=== PATIENT | female | born 1975 | race Hispanic/Latino ===

== ENCOUNTER 2017-11-04 13:07 | Emergency (ER) | payer BC, SELFPAY ==
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
[2017-11-04 14:59] VITALS: BP 115/70; TEMP 97.6; O2SAT 99
[2017-11-04 15:10] LABS: Urine Blood NEGATIVE (NEG); Urine Glucose NEGATIVE (NEG); Urine Protein NEGATIVE (NEG)
== END 2017-11-04 14:52 | disposition home or self-care (01) ==
LOC: ER 13:07
DX: M79.1 Myalgia (principal); M54.6 Pain in thoracic spine; V49.49XA Driver injured in collision with other motor vehicles in traffic accident, initial encounter; Z88.0 Allergy status to penicillin
CPT/HCPCS: 70450; 72125; 72128; 81003; 81025; 99283

== ENCOUNTER 2020-02-23 06:36 | Day surgery (SDC) | payer OTHER ==
[2020-02-22 16:30] LABS: Specific Gravity >= 1.030 (1.005-1.030)
--- OUTSIDE RECORDS SUMMARY | 2020-02-23 06:39 | XMS REPORT | Continuity of Care Document ---
:1975 Author Organization [facility] t Address [address] [place] [address] Care Team Providers Name Role Phone Doctor Unassigned, Name Attending Clinician Unavailable Lab, Fam Pob I Attending Clinician Unavailable Kin MORAN, Kristen Attending Clinician Pob, Lab Main Attending Clinician Unavailable Problems This patient has no known problems. Allergies, Adverse Reactions, Alerts This patient has no known allergies or adverse reactions. Medications This patient has no known medications. Procedures This patient has no known procedures. Encounters Start End Encounter Admission Attending Care Care Encounter Source Date/Time Date/Time Type Type Clinicians Facility Department ID 2019-09-06 2019-09-06 Patient Doctor TAMY [id number] 00:00:00 00:00:00 Secure Msg UnassignedANA [id number] [facility] [id number] 2019-09-05 2019-09-05 Laboratory Lab, [facility] [id number] 14:42:37 15:02:37 Only Fam Pob I Health [id number] [place] [id number] Aubrey [phone] nal [address] 2019-09-05 2019-09-05 Letter Doctor TAMY 1.2.840.114 [id number] 00:00:00 00:00:00 (Out) UnassignedANA [id number] [facility] [id number] 2019-08-08 2019-08-08 Orders Doctor TAMY [id number] 00:00:00 00:00:00 Only UnassignedANA [id number] [facility] [id number] 2019-08-04 2019-08-04 Telephone Kin [facility] 1.2.840.114 [id number] 00:00:00 00:00:00 Elsie VERDUZCO [id number] CARE [id number] CENTER AT [phone] [address]EL[address] [place] [address] 2019-07-20 2019-07-20 Youth Corrections Officer Wander Izaguirre [facility] 1.2.840.114 [id number] 07:55:20 08:10:20 Visit Lab Main [place] [id number] [place] [id number] Professio [phone] [facility] [address] Building Results This patient has no known results.
[2020-02-23] MEDS ORDERED: Ringers Lactate 1,000 ML IV ONE (07:04)
[2020-02-23] MEDS ORDERED: FENTANYL CITR 100 MCG/2 ML ONE (07:30)
[2020-02-23] MEDS ORDERED: propofoL 200 MG/20 ML VIAL IV ONE (07:30)
[2020-02-23] MEDS ORDERED: KETOROLAC 30 MG/ML INJ ONE (07:30)
[2020-02-23] MEDS ORDERED: MIDAZOLAM HCL 2 MG/2 ML INJ ONE (07:30)
[2020-02-23] MEDS ORDERED: ONDANSETRON 4 MG/2 ML VIAL ONE (07:31)
[2020-02-23] MEDS ORDERED: LIDOCAINE 1% MPF 30 ML VIAL ONE (07:31)
[2020-02-23] MEDS ORDERED: LIDOCAINE 1% W/EPI 1:100,000 MDV 50 ML VIAL ONE (07:37)
[2020-02-23 09:09] VITALS: BP 123/64; TEMP 99.3; O2SAT 94
[2020-02-23] MEDS ORDERED: ACETAMINOPHEN 500 MG TAB ONE (09:10)
--- NOTE | 2020-02-24 01:22 | OP ---
Date of Procedure: 02/23/2020 Surgeon: Franchesca Yepez MD Preoperative Diagnoses: Menorrhagia and iron deficiency anemia from chronic blood loss. Postoperative Diagnoses: Menorrhagia and iron deficiency anemia from chronic blood loss. Procedures Performed: Diagnostic hysteroscopy and dilation and curettage. Anesthesia: MAC plus paracervical block. Specimens: Endometrial curettings. Complications: No complications. Drains: No drains. Condition: Stable. Indications: The patient is a 44-year-old female, who presented to the office for some vaginitis and discharge and found to have iron deficiency anemia and iron infusions were given to this patient. S he has seen Dr. Ndiaye and then was referred over to Dr. Clemens and she was treated appropriately. T he impression in the office was that she had an extremely low hemoglobin somewhere less than 6 and th at she was given iron infusions. No history of any transfusion. However, no records available from either physician's office, but she seemed to have ongoing very heavy bleeding as well as dysmenorrhea , so there was a high concern for her low level of anemia and ongoing bleeding. She needed endometri al sampling and this was scheduled for the patient. She was consented and brought to the operating r oom. Description Of Procedure: She was a difficult IV stick. Once this was done, the IV was put in and d id find contemplated giving her a transfusion if the hemoglobin was still low, however, on talking to Dr. Clemens after her most recent hemoglobin was known to be 13 g, then there was no reason for any con cern to transfuse this patient. So, she was taken back to the operating room, placed in a supine fas hion on the operating table. MAC was given and she was placed in the dorsal lithotomy position. Pel david exam was performed. Uterus was found to be anteflexed and slightly enlarged. Prep x3 with Betad ine was done. Anterior lip was injected with 1% lidocaine mixed with 1:100,000 epinephrine 8 cc. Th en, at 4 and 8 o'clock cervicovaginal junction were injected with 5 cc each. Speculum placed to retr act posteriorly. Anterior lip grasped with 2 Allis clamps and diagnostic hysteroscopy was performed with a 30 degree lens normal saline. The cervical canal was traversed under direct visualization int o the uterine cavity. Cavity was opened. Unremarkable thick endometrium without any masses. Both t ubal ostia were well visualized. The scope was then removed and endometrial curettings were performe d. There was excellent sampling. Sample was handed off for permanent pathology. Instruments were r emoved. Instrument, needle, and sponge counts were correct at the end of the case. Toradol 30 mg wa s given to the patient and she was recovered from anesthesia and taken to [facility] in a stab le condition. She has a 1 week followup appointment with me and I can then send a report of her path to Dr. Ndiaye as well as Dr. Clemens. Estimated blood loss was minimal. Instrument, needle, and spo nge counts were correct. COLEMAN/RAYMOND Voice ID: [id number] Report ID: [id number]
== END 2020-02-23 09:19 | disposition home health service (06) ==
LOC: OR 06:36
PROVIDERS: ATTEND Obstetrics & Gynecology
PROC: 0UDB8ZX Extraction of Endometrium, Via Natural or Artificial Opening Endoscopic, Diagnostic (ICD-10-PCS; principal; 2020-02-23 07:30)
DX: N92.0 Excessive and frequent menstruation with regular cycle (principal); R10.31 Right lower quadrant pain; D50.9 Iron deficiency anemia, unspecified; R51.9 Headache, unspecified; N76.6 Ulceration of vulva; I10 Essential (primary) hypertension; Z20.822 Contact with and (suspected) exposure to COVID-19
CPT/HCPCS: 81025; 88305; 83001; 58555; U0002; J2704; J2250; J3010; J7120; J2405

== ENCOUNTER 2020-05-25 13:01 | Emergency (ER) | payer OTHER ==
--- OUTSIDE RECORDS SUMMARY | 2020-05-25 13:04 | XMS REPORT | Continuity of Care Document ---
:1975 Author Organization [facility] t Address [address] [place] [address] Care Team Providers Name Role Phone Unknown Attending Clinician Unavailable Lab, Fam Pob I Attending Clinician Unavailable Rosemarie MEDRANO Attending Clinician Kemar Figueroa DO Attending Clinician Doctor Unassigned, Name Attending Clinician Unavailable Kristen Sanderson MD Attending Clinician Pob, Lab Main Attending Clinician Unavailable Problems This patient has no known problems. Allergies, Adverse Reactions, Alerts This patient has no known allergies or adverse reactions. Medications This patient has no known medications. Procedures This patient has no known procedures. Encounters Start End Encounter Admission Attending Care Care Encounter Source Date/Time Date/Time Type Type Clinicians Facility Department ID 2020-05-25 2020-05-25 Telephone Unknown, [facility] 1.2.840.114 [id number] 00:00:00 00:00:00 Attending Health [id number] Surgical [id number] Specialti [phone] [address] [place] 2020-04-30 2020-04-30 Laboratory Lab, [facility] 1.2.840.114 [id number] 13:56:37 14:16:37 Only Fam Pob I Health [id number] [place] [id number] Professio [phone] nal [address] 2020-04-30 2020-04-30 Letter Rosemarie [facility] 1.2.840.114 [id number] 00:00:00 00:00:00 (Out) [facility] [id number] [place] [id number] Professio [phone] nal [address] 2020-04-25 2020-04-25 Patient Henry [facility] 1.2.840.114 [id number] 00:00:00 00:00:00 Outreach Dez PRIMARY [id number] [place] CARE [id number] PAVILLION [id number] [id number] 2019-09-06 2019-09-06 Patient Doctor TAMY 1.2.840.114 [id number] 00:00:00 00:00:00 Secure Msg Unassigned, ANA [id number] [facility] [id number] 2019-09-05 2019-09-05 Laboratory Lab, [facility] 1.2.840.114 [id number] 14:42:37 15:02:37 Only Fam Pob I Health [id number] [place] [id number] Professio [phone] nal [facility] Office Building One 2019-09-05 2019-09-05 Letter Doctor TAMY 1.2.840.114 [id number] 00:00:00 00:00:00 (Out) Unassigned, ANA [id number] [facility] [id number] 2019-08-08 2019-08-08 Orders Doctor TAMY 1.2.840.114 [id number] 00:00:00 00:00:00 Only Unassigned, ANA [id number] [facility] [id number] 2019-08-04 2019-08-04 [facility] 1.2.840.114 [id number] 00:00:00 00:00:00 Elsie Peterson SPECIALTY [id number] CARE [id number] CENTER AT [phone] FELIPE [facility] 2019-07-20 2019-07-20 [place] Hydraulic Press Operator Wander Izaguirre [facility] 1.2.840.114 [id number] 07:55:20 08:10:20 Visit Lab Main [place] [id number] [place] [id number] Aubrey [phone] [facility] [address] Building Results This patient has no known results.
--- NOTE | 2020-05-25 13:59 | RAD REPORT ---
EXAM DESCRIPTION: RAD - Chest Single View - 05/25/2020 1:53 pm CLINICAL HISTORY: weakness, shortness of breath COMPARISON: None TECHNIQUE: AP portable chest image was obtained 05/25/2020 1:53 pm . FINDINGS: Lung volumes are low. Trace amount of stranding is present in the left base probably atele ctasis rather than infiltrate. No dense consolidation. No failure or volume overload findings. Heart and vasculature are normal. No measurable pleural effus ion and no pneumothorax. Breast implants are in place increasing density over the lower lung garcia. No acute bony abnormality seen. No acute aortic findings suspected. IMPRESSION: No acute cardiopulmonary finding confirmed. Trace amount of stranding in the left lung base is favored to be atelectasis rather infiltrate. Corre lation can be made with physical exam findings.
--- NOTE | 2020-05-25 14:00 | RAD REPORT ---
EXAM DESCRIPTION: CT - Head Brain Wo Cont - 05/25/2020 1:46 pm CLINICAL HISTORY: WEAKNESS COMPARISON: No comparisons TECHNIQUE: Axial 5 mm thick images of the head were obtained without IV contrast. All CT scans are performed using dose optimization technique as appropriate and may include automated exposure control or mA/KV adjustment according to patient size. FINDINGS: No intracranial hemorrhage, mass, edema or shift of mid-line structures. No acute infarcti on changes seen. No abnormal extra-axial fluid collections. Ventricles are normal. Mastoid air cells and visualized portions of the paranasal sinuses are clear. No acute bony findings. IMPRESSION: Negative non-contrast CT head examination.
[2020-05-25 16:59] LABS: Protime INR 1.15
[2020-05-25 17:00] LABS: Absolute Lymphocytes (CBC) 3.2 K/uL (0.7-4.9); Basophils % 1.3 % (0-1.3); Hematocrit 40.4 % (36.0-45.0); Lymphocytes % 28.2 % (15.3-44.8); MPV 8.7 fL (7.6-11.3); RBC Red Blood Cell Count 4.85 M/uL (3.86-4.86)
[2020-05-25 17:01] LABS: ALT/SGPT 14 U/L (12-78); AST/SGOT 9 U/L (15-37); Albumin 3.2 g/dL (3.4-5.0); Alkaline Phosphatase 77 U/L (45-117); BUN Blood Urea Nitrogen 11 mg/dL (7-18); Bicarbonate 26 mmol/L (21-32); Bilirubin Direct 0.2 mg/dL (0-0.2); Glucose Level 73 mg/dL (74-106); Magnesium 2.3 mg/dL (1.8-2.4); NT PRO-BNP 107 pg/mL (<125); Potassium 3.8 mmol/L (3.5-5.1); Protein, Total 7.3 g/dL (6.4-8.2); Sodium Level 140 mmol/L (136-145); Troponin (Emerg Dept Use Only) < 0.02 ng/mL (0.0-0.045)
[2020-05-25 17:20] LABS: Barbiturates NEGATIVE (NEGATIVE); Benzodiazepines POSITIVE (NEGATIVE); Cocaine NEGATIVE (NEGATIVE); METHAMPHETAM NEGATIVE (NEGATIVE); Methadone NEGATIVE (NEGATIVE); Opiates NEGATIVE (NEGATIVE); Phencyclidine NEGATIVE (NEGATIVE); THC Cannibis NEGATIVE (NEGATIVE)
--- NOTE | 2020-05-25 17:38 | EDPHYS ---
Physician Documentation [facility] Name: Meggan Mesa Age: 44 yrs Sex: Female : 1975 Arrival Date: 05/25/2020 Time: 13:05 Bed 20 Private MD: Aubrie Ndiaye K ED Physician Vinicio Moser HPI: 05/25 13:29 This 44 yrs old Female presents to ER via Ambulatory with complaints of pm1 General Weakness, Syncope. 13:29 The patient's problem is reported as weakness, that is generalized. Onset: The pm1 symptoms/episode began/occurred today. Duration: This was a single incident. Context: Possible contributing factors include: Family and medical stressors. The symptoms are alleviated by nothing. The symptoms are aggravated by nothing. Associated signs and symptoms: Pertinent positives: Light vaginal bleeding since Wednesday. Poor PO intake due to anxiety and depression. Severity of symptoms: in the emergency department the symptoms have improved. Patient's baseline: Neuro: alert and fully oriented, Motor: no deficits, Ambulation: walks without assistance, Speech: normal. Iron transfusion with DR. Clemens after hemoglobin was 8.0. Patient was cooking lunch for her grandson and then she felt weak and sick. She went to lay down in bed to rest and the her reports that it was difficult to wake her up. Patient has been feeling stressed recently due to family and medical stressors. She is worried about the vaginal bleeding, anemia, and iron transfusions. 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 - Social history:: Smoking status: Patient denies any tobacco usage or history of. ROS: 13:29 Eyes: Negative for injury, pain, redness, and discharge, ENT: Negative for injury, pm1 pain, and discharge, Cardiovascular: Negative for chest pain, palpitations, and edema, Respiratory: Negative for shortness of breath, cough, wheezing, and pleuritic chest pain, Abdomen/GI: Negative for abdominal pain, nausea, vomiting, diarrhea, and constipation, Back: Negative for injury and pain, : Negative for injury, bleeding, discharge, and swelling, MS/Extremity: Negative for injury and deformity, Skin: Negative for injury, rash, and discoloration, Neuro: Negative for headache, weakness, numbness, tingling, and seizure. 13:29 Constitutional: Positive for poor PO intake, Negative for body aches, chills, fever. 13:29 Psych: Positive for anxiety, depression, Negative for homicidal ideation, suicide gesture, suicidal ideation. Exam: 13:29 Constitutional: This is a well developed, well nourished patient who is awake, alert, pm1 and in no acute distress. Head/Face: Normocephalic, atraumatic. 13:29 Back: No spinal tenderness. No costovertebral tenderness. Full range of motion. Skin: Warm, dry with normal turgor. Normal color with no rashes, no lesions, and no evidence of cellulitis. MS/ Extremity: Pulses equal, no cyanosis. Neurovascular intact. Full, normal range of motion. 13:29 Cardiovascular: Exam negative for acute changes, Rate: bradycardic, actual rate is 56 bpm, Rhythm: regular, Pulses: no pulse deficits are appreciated, Heart sounds: normal, normal S1and S2, Edema: is not appreciated. 13:29 Respiratory: Exam negative for acute changes, respiratory distress, shortness of breath, Breath sounds: are clear throughout. 13:29 Abdomen/GI: Exam negative for acute changes, Inspection: abdomen appears normal, Palpation: abdomen is soft and non-tender, in all quadrants, mass, is not appreciated. 13:29 Neuro: Exam negative for acute changes, Orientation: is normal, Mentation: is normal, Motor: is normal, moves all fours, Sensation: is normal, no obvious gross deficits. 15:06 Radiologist reports: CT head: No acute findings pm1 Vital Signs: 13:10 BP 142 / 84; Pulse 61; Resp 16 S; Temp 97.7(TE); Pulse Ox 97% on R/A; Weight 95.71 kg ca1 (R); Height 5 ft. 2 in. (157.48 cm) (R); Pain 0/10; 14:29 BP 142 / 99; Pulse 93; Resp 23; Pulse Ox 97% ; rb3 15:37 BP 104 / 79; Pulse 85; Resp 19; Pulse Ox 96% ; rb3 16:40 BP 129 / 75; Pulse 53; Resp 17; Pulse Ox 100% ; rb3 17:40 BP 128 / 78; Pulse 67; Resp 17; Pulse Ox 99% ; rb3 13:10 Body Mass Index 38.59 (95.71 kg, 157.48 cm) ca1 MDM: 13:21 Patient medically screened. pm1 17:32 ED course: positive UDS for benzodiazepines. Patient takes Xanax for her anxiety. pm1 Patient is experiencing lots of stressors at the moment. Her son of cancer 8 years ago and her vaginal bleeding has returned. It was recently treated with an ablation but the bleeding returned on Wednesday. She is fearful that the vaginal bleeding might be cancer related. Has been following up with Dr. Clemens and her next plan would possibly be a hysterectomy. 17:37 Data reviewed: vital signs. Data interpreted: Pulse oximetry: on room air is 100 %. pm1 Interpretation: normal. 17:37 Counseling: I had a detailed discussion with the patient and/or guardian regarding: the pm1 historical points, exam findings, and any diagnostic results supporting the discharge/admit diagnosis, lab results, radiology results, the need for outpatient follow up, to return to the emergency department if symptoms worsen or persist or if there are any questions or concerns that arise at home. 17:41 ED course: Patient would like the D50W. Told the patient that her sugar was just below pm1 normal and that I would like her to eat after she gets the D50W. Patient does not want the IV fluids. She would like to go home now because she feels better. 05/25 13:27 Order name: Glucose, Ancillary Testing; Complete Time: 13:30 EDMS 05/25 13:28 Order name: Basic Metabolic Panel; Complete Time: 17:14 pm1 05/25 13:28 Order name: CBC with Diff; Complete Time: 17:37 pm1 05/25 13:28 Order name: LFT's; Complete Time: 17:14 pm1 05/25 13:28 Order name: Magnesium; Complete Time: 17:14 pm1 05/25 13:28 Order name: NT PRO-BNP; Complete Time: 17:14 pm1 05/25 13:28 Order name: PT-INR; Complete Time: 17:37 pm1 05/25 13:28 Order name: Troponin (emerg Dept Use Only); Complete Time: 17:14 pm1 05/25 13:28 Order name: XRAY Chest (1 view); Complete Time: 14:09 pm1 05/25 13:28 Order name: UDS; Complete Time: 17:21 pm1 05/25 13:28 Order name: CT Head Brain wo Cont; Complete Time: 14:09 pm1 05/25 16:27 Order name: Urine --Ancillary (enter results); Complete Time: 13:21 eb 05/25 18:46 Order name: Glucose, Ancillary Testing; Complete Time: 18:48 EDMS 05/25 13:15 Order name: EKG; Complete Time: 13:16 ca1 05/25 13:15 Order name: EKG - Nurse/Tech; Complete Time: 13:23 ca1 05/25 13:28 Order name: Cardiac monitoring; Complete Time: 16:53 pm1 05/25 13:28 Order name: IV Saline Lock; Complete Time: 16:30 pm1 05/25 13:28 Order name: Labs collected and sent; Complete Time: 16:30 pm1 05/25 13:28 Order name: O2 Per Protocol; Complete Time: 16:30 pm1 05/25 13:28 Order name: O2 Sat Monitoring; Complete Time: 16:30 pm1 05/25 13:28 Order name: Urine Dipstick-Ancillary (obtain specimen); Complete Time: 16:29 pm1 05/25 13:28 Order name: Urine Test (obtain specimen); Complete Time: 16:29 pm1 Administered Medications: 18:01 Drug: D50W 25 ml Route: IVP; Site: left jugular; rb3 18:45 Follow up: Response: No adverse reaction rb3 Disposition: 05/26 08:32 Co-signature as Attending Physician, Vinicio Moser MD I agree with the assessment and diana plan of care. Disposition: 05/25/20 17:38 Discharged to Home. Impression: Acute stress reaction, Weakness. - Condition is Stable. - Discharge Instructions: Weakness, Stress and Stress Management. - Medication Reconciliation Form, Thank You Letter, Antibiotic Education, Prescription Opioid Use form. - Follow up: Emergency Department; When: As needed; Reason: Worsening of condition. Follow up: Private Physician; When: 2 - 3 days; Reason: Recheck today's complaints, Continuance of care, Re-evaluation by your physician. - Problem is new. - Symptoms have improved. Signatures: Dispatcher [employer] EDMS Vinicio Moser MD MD cha Marinas, Patrick, BANANA LOADER BANANA LOADER pm1 Brunilda Pimentel RN RN ca1 Missy Roman, RN RN rb3 Corrections: (The following items were deleted from the chart) 05/25 18:57 17:38 05/25/2020 17:38 Discharged to Home. Impression: Acute stress reaction; Weakness. rb3 Condition is Stable. Forms are Medication Reconciliation Form, Thank You Letter, Antibiotic Education, Prescription Opioid Use. Follow up: Emergency Department; When: As needed; Reason: Worsening of condition. Follow up: Private Physician; When: 2 - 3 days; Reason: Recheck today's complaints, Continuance of care, Re-evaluation by your physician. Problem is new. Symptoms have improved. pm1 18:59 17:32 ED course: positive UDS for benzodiazepines. Patient takes Xanax for her anxiety. pm1 Patient is experiencing lots of stressors at the moment. Her son of cancer 8 years ago and her vagina bleeding has returned. It was recently treated with an ablation but the bleeding returned on Wednesday. She is fearful that the vaginal bleeding might be cancer related. Has been following up with Dr. Clemens and her next plan would possibly be a hysterectomy. pm1
--- NOTE | 2020-05-25 17:38 | ER ---
Nurse's Notes [facility] Name: Meggan Mesa Age: 44 yrs Sex: Female : 1975 Arrival Date: 05/25/2020 Time: 13:05 Bed 20 Private MD: Aubrie Ndiaye K Diagnosis: Acute stress reaction;Weakness Presentation: 05/25 13:10 Chief complaint: Patient states: My found me unresponsive on the bed. I was ca1 cooking for lunch, then I feel sick so I went and lay down. I haven't been really eating and drinking much since Wednesday because of problems. EMS came in but I didn't want to come with them. Coronavirus screen: Client denies travel out of the [place] in the last 14 days. At this time, the client does not indicate any symptoms associated with coronavirus-19. Ebola Screen: Patient negative for fever greater than or equal to 101.5 degrees Fahrenheit, and additional compatible Ebola Virus Disease symptoms Patient denies exposure to infectious person. Patient denies travel to an Ebola-affected area in the 21 days before illness onset. No symptoms or risks identified at this time. Initial Sepsis Screen: Does the patient meet any 2 criteria? No. Patient's initial sepsis screen is negative. Does the patient have a suspected source of infection? No. Patient's initial sepsis screen is negative. Risk Assessment: Do you want to hurt yourself or someone else? Patient reports no desire to harm self or others. Onset of symptoms was May 25, 2020. 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 - Social history:: Smoking status: Patient denies any tobacco usage or history of. Screenin:20 Abuse screen: Denies threats or abuse. Nutritional screening: No deficits noted. rb3 Tuberculosis screening: No symptoms or risk factors identified. Fall Risk None identified. Assessment: 13:20 General: Appears in no apparent distress. comfortable, Behavior is calm, cooperative. rb3 Neuro: Level of Consciousness is awake, alert, obeys commands, Oriented to person, place, time, situation. Cardiovascular: Patient's skin is warm and dry. Respiratory: Airway is patent Respiratory effort is even, unlabored, Respiratory pattern is regular, symmetrical. GI: No signs and/or symptoms were reported involving the gastrointestinal system. : No signs and/or symptoms were reported regarding the genitourinary system. 13:20 Neuro: Reports Feeling sick and went to lay down and her reports that she was rb3 unresponsive.. 14:29 Reassessment: Patient appears in no apparent distress at this time. No changes from rb3 previously documented assessment. 14:30 Reassessment: Unable to access a line to draw labs. Asked DAWIT Brown to attempt an rb3 IV. 15:00 Reassessment: Lab has been contacted to come and draw labs. rb3 15:22 Reassessment: Patient appears in no apparent distress at this time. Patient and/or rb3 family updated on plan of care and expected duration. Pain level reassessed. Patient is alert, oriented x 3, equal unlabored respirations, skin warm/dry/pink. 15:27 Reassessment: Patient appears in no apparent distress at this time. Patient and/or rb3 family updated on plan of care and expected duration. Pain level reassessed. Patient is alert, oriented x 3, equal unlabored respirations, skin warm/dry/pink. 15:30 Reassessment: No labs have been drawn, KAREEM Stovall notified. She will have them paged rb3 again. 16:07 Reassessment: Asked RONNIE Damon if he could start a line and draw labs. rb3 16:30 Reassessment: Patient appears in no apparent distress at this time. Patient and/or rb3 family updated on plan of care and expected duration. Pain level reassessed. Patient is alert, oriented x 3, equal unlabored respirations, skin warm/dry/pink. 17:30 Reassessment: Patient appears in no apparent distress at this time. Patient and/or rb3 family updated on plan of care and expected duration. Pain level reassessed. 18:30 Reassessment: Patient appears in no apparent distress at this time. Patient denies pain rb3 at this time. Patient states feeling better. 18:45 Reassessment: Blood sugar is 93. rb3 Vital Signs: 13:10 BP 142 / 84; Pulse 61; Resp 16 S; Temp 97.7(TE); Pulse Ox 97% on R/A; Weight 95.71 kg ca1 (R); Height 5 ft. 2 in. (157.48 cm) (R); Pain 0/10; 14:29 BP 142 / 99; Pulse 93; Resp 23; Pulse Ox 97% ; rb3 15:37 BP 104 / 79; Pulse 85; Resp 19; Pulse Ox 96% ; rb3 16:40 BP 129 / 75; Pulse 53; Resp 17; Pulse Ox 100% ; rb3 17:40 BP 128 / 78; Pulse 67; Resp 17; Pulse Ox 99% ; rb3 13:10 Body Mass Index 38.59 (95.71 kg, 157.48 cm) ca1 ED Course: 13:05 Patient arrived in ED. am2 13:05 Aubrie Ndiaye MD is Private Physician. am2 13:12 Triage completed. ca1 13:12 Arm band placed on right wrist. ca1 13:20 [facility]. pm1 13:20 Vinicio Moser MD is Attending Physician. pm1 13:23 Patient has correct armband on for positive identification. Placed in gown. Bed in low ca1 position. Call light in reach. Side rails up X2. planning assistant on. Pulse ox on. NIBP on. Warm blanket given. 13:32 Missy Roman, RONNIE is Primary Nurse. rb3 13:46 CT Head Brain wo Cont In Process Unspecified. EDMS 13:50 X-ray completed. Patient tolerated procedure well. mh1 13:51 XRAY Chest (1 view) In Process Unspecified. EDMS 14:09 Missed attempt(s): 22 gauge in left antecubital area. Bleeding controlled, band aid rb3 applied, catheter tip intact. 18:45 No provider procedures requiring assistance completed. rb3 18:45 IV discontinued, intact, bleeding controlled, No redness/swelling at site. Pressure rb3 dressing applied. Administered Medications: 18:01 Drug: D50W 25 ml Route: IVP; Site: left jugular; rb3 18:45 Follow up: Response: No adverse reaction rb3 Outcome: 17:38 Discharge ordered by . pm1 18:45 Discharged to home ambulatory. rb3 18:45 Condition: good 18:45 Discharge instructions given to patient, Instructed on discharge instructions, follow up and referral plans. Demonstrated understanding of instructions, follow-up care, Prescriptions given X none 18:57 Patient left the ED. rb3 Signatures: Dispatcher [employer] EDMS Ronda Turner 1 Fernando Manjarrez, OPERATIONS SUPPORT PROFESSIONALS OPERATIONS SUPPORT PROFESSIONALS pm1 Tita Brooks am2 Brunilda Pimentel, RN RN ca1 Missy Roman RN RN rb3
[2020-05-25] MEDS ORDERED: D50W 25 GM/50 ML SYRINGE IV ONE (18:14)
[2020-05-25 19:11] VITALS: TEMP 97.7
[2020-05-25 19:17] VITALS: BP 128/78; O2SAT 99
[2020-05-25 20:31] LABS: Urine Specific Gravity/Preg 1.025 (1.005-1.030)
[2020-05-29 17:01] LABS: Urine Blood 1+ (Negative); Urine Glucose NEGATIVE (Negative); Urine Protein NEGATIVE (Negative); Urine Specific Gravity 1.025 (1.005-1.030); Urine pH 5.5 (5.0-7.0)
== END 2020-05-25 18:57 | disposition home or self-care (01) ==
LOC: ER 13:01
DX: R53.1 Weakness (principal); F43.9 Reaction to severe stress, unspecified; Z98.84 Bariatric surgery status; D64.9 Anemia, unspecified
CPT/HCPCS: 36415; 70450; 71045; 80048; 80076; 80307; 81003; 81025; 82947; 83735; 83880; 84484; 85025; 85610; 93005; 96374; 99284

== ENCOUNTER 2021-08-29 11:34 | Emergency (ER) | payer BC, OTHER ==
--- OUTSIDE RECORDS SUMMARY | 2021-08-29 11:39 | XMS REPORT | Continuity of Care Document ---
:1975 Author Organization [facility] t Address [address] [place] [address] Care Team Providers Name Role Phone Becki LOPEZ Primary Care Physician Sylvie Tse Attending Clinician Unavailable PREEVAN Attending Clinician Unavailable RADIOLOGY Attending Clinician Unavailable Becki LOPEZ Attending Clinician MENG Attending Clinician Unavailable Meng MORAN Attending Clinician LAB90 Attending Clinician Unavailable APOORVA HENDRIX Attending Clinician Unavailable JESUS Attending Clinician Unavailable Sharmin IAVN Attending Clinician Jesus MORAN Attending Clinician Gogo RN, T Attending Clinician Unavailable KAUSHIK Attending Clinician Unavailable Only, Db Test Attending Clinician Unavailable Kaushik MEDRANO Attending Clinician Simba IVAN Attending Clinician SIMBA Attending Clinician Unavailable Doctor Unassigned, Name Attending Clinician Unavailable Unknown Attending Clinician Unavailable Lab, Fam Pob I Attending Clinician Unavailable ANENE Attending Clinician Unavailable Rosemarie MEDRANO Attending Clinician Kemar Figueroa DO Attending Clinician Kristen Tomas MD Attending Clinician Pob, Lab Main Attending Clinician Unavailable Kristen TOMAS Attending Clinician Unavailable Payers Payer Name Policy Type Policy Number Effective Date Expiration Date S alicia MCCARTY [employer] 9 [id number] 2021 [employer]IMARY 00:00:00 BLUE E[employer]ENTIALS HMO [id number] 2021 00:00:00 CIGNA 2 [id number] 2020 00:00:00 [employer] SAVERS [id number] 2021 00:00:00 CIGNA II [id number] 2019 00:00:00 Problems Condition Condition Condition Status Onset Resolution Last Treating Co mments Source Name Details Category Date Date Treatment Clinician Date Morbid Morbid Disease Active Aline obesity obesity 5-20 Seybold with BMI with BMI 00:00: of of 00 40.0-44.9, 40.0-44.9, adult adult Attention Attention Disease Active Juve sey deficit deficit 4-28 Seybold hyperactiv hyperactiv 00:00: ity ity 00 disorder disorder (ADHD), (ADHD), predominan predominan tly tly inattentiv inattentiv e type e type Dry eyes Dry eyes Disease Active Kelse y 4-28 Seybold 00:00: 00 Iron (Fe) Iron (Fe) Disease Active Juve sey deficiency deficiency 4-15 Se ybold anemia anemia 00:00: 00 History of History of Disease Active Overview : Aline menorrhagi menorrhagi 4-15 Formattin Seybold a a 00:00: g of this 00 note might be different from the original. 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 old stress stress 00:00: disorder disorder 00 No known No known Disease Unive rs active active ity of problems problems [facility] Allergies, Adverse Reactions, Alerts Allergy Allergy Status Severity Reaction(s) Onset Inactive Treating Comm ents Source Name Type Date Date Clinician Penicill Drug Active Hives 2019-0 Univers ins Intolera 6-09 ity of nce 00:00: [place] 00 Medical [place] Penicill Drug Active Hives 2020-0 Univers ins Intolera 6-09 ity of nce 00:00: [place] 00 Medical [place] PENICILL Drug Active Hives 2020-0 Univers INS Class 6-09 ity of 00:00: [place] [facility] Penicill Drug Active Rash 2019-0 Aline ins Intolera 6-09 Seybold nce 00:00: 00 NO KNOWN Drug Active Univers ALLERGIE Class ity of S [facility] Social History Social Habit Start Date Stop Date Quantity Comments Source History SDOH Aline Martell ld Alcohol Std Drinks History SDOH Aline treviño Alcohol Binge History SDOH Aline treviño Alcohol Frequency Exposure to 2021-08-17 2021-08-27 Not sure [facility]-CoV-2 00:00:00 19:47:00 [facility] (event) [place] Alcohol intake 2021-06-27 2021-06-27 Aline riggins 00:00:00 00:00:00 Alcohol Comment 2021-05-23 2021-05-23 rarely Aline sampson 00:00:00 00:00:00 Education 2021-05-23 2021-05-23 16 Aline Garcia 00:00:00 00:00:00 Tobacco use and 2021-05-23 2021-05-23 Smokeless tobacco Ke juan j Garcia exposure 00:00:00 00:00:00 non-user Sex [birth year] At [birth year] Aline sampson 00:00:00 00:00:00 Smoking Status Start Date Stop Date Source Never smoked tobacco Aline Lemons old Medications Ordered Filled Start Stop Current Ordering Indication Dosage Frequency Signature Comments Components Source Medication Medication Date Date Medication? Clinician (SIG) Name Name ketorolac 2021- No 30mg 30 mg, Unive rs (TORADOL) 08-28 Slow IV ity of injection 02:15: 02:00 Push, [place] 30 mg 00 :00 ONCE, 1 Medical dose, On Branch 08/27/21 at 2115, JHOANA iopamidol 2021- No [id number] 55mL 55 mL, U nivers (ISOVUE 08-28 Intravenou ity o f 370-500 mL) 01:47: 01:47 s, ONCE, 1 [place] injection 00 :00 dose, On Medica l 55 mL Wed Branch 08/27/21 at 2100, Routine ondansetron Yes [id number] 4mg Take 1 Univers 4 mg 7-20 tablet by ity of disintegrat 00:00: mouth [place] ing tablet 00 every 4 Medica l (four) Branch hours as needed for Nausea and Vomiting (N/V). HYDROcodone 2021- Yes [id number] 1{tbl} Take 1 U nivers -acetaminop 08-27- tablet by it y of emilio (NORCO) 00:00: 04:59 [place] 7.5-325 mg 00 :00 every 8 Medica l per tablet (eight) Branch hours as needed for Pain for up to 7 days. Indication s: acute pain Semaglutide Yes [id number] .5mg Inject 0.5 Aline -Weight 5-20 mg into Seybold Management 00:00: the skin 0.5 00 once a MG/0.5ML week subcutaneou s Solution Auto-inject or Escitalopra Yes [id number] TAKE 1 Aline m Oxalate 5-09 TABLET BY Seannetteo ld 10 MG oral 00:00: MOUTH Tablet 00 EVERY DAY TRIMETHOPRI 2021-2021- No 1{tbl} Take 1 K elsey M-SULFAMETH 5-01 05-20 tablet by Se [employer] OXAZOLE 00:00: 00:00 mouth 800-160 MG 00 :00 every 12 oral Tablet hours FOR 7 DAYS Amphetamine 2021- Yes [id number] 10mg Take 1 Aline -Dextroamph 4-28 05-29 tablet (10 S eybold etamine 00:00: 04:59 mg total) (ADDERALL, 00 :00 by mouth 10MG,) 10 daily MG oral Tablet Amphetamine 2021- No [id number] 10mg Take 1 Aline -Dextroamph 4-28 05-20 tablet (10 S eybold etamine 00:00: 00:00 mg total) (ADDERALL, 00 :00 by mouth 10MG,) 10 daily MG oral Tablet Cyanocobala Yes [id number] 1000ug Take 1 Aline min 4-18 tablet Seybold (Vitamin 00:00: (1,000 mcg B-12) 1000 00 total) by MCG oral mouth Tablet daily Cyanocobala Yes [id number] 1000ug Take 1 Aline min 4-18 tablet Seybold (Vitamin 00:00: (1,000 mcg B-12) 1000 00 total) by MCG oral mouth Tablet daily Escitalopra Yes [id number] 10mg Take 1 Aline m Oxalate 4-15 tablet (10 Seyb old 10 MG oral 00:00: mg total) Tablet 00 by mouth daily Escitalopra Yes [id number] 10mg Take 1 Aline m Oxalate 4-15 tablet (10 Seyb old 10 MG oral 00:00: mg total) Tablet 00 by mouth daily cetirizine Yes [id number] 10mg Take 1 Univers 10 mg 9-10 tablet by ity of tablet 00:00: mouth [place] 00 daily. Medical Branch benzonatate Yes [id number] 200mg Take 1 Univers 200 mg 9-10 capsule by ity of capsule 00:00: mouth 3 [place] 00 (three) Medical times Branch daily as needed for Cough. ciprofloxac Yes [id number] 4[drp] Place 4 Univers in-dexameth 9-10 Drops in ity of asone 00:00: left ear 2 [place] 0.3-0.1 % 00 (two) Medical otic drops times Branch daily. fluticasone Yes [id number] 2{spray Use 2 Univers propionate 9-10 } Sprays in ity of 50 00:00: each [place] mcg/actuati 00 nostril Medic al on nasal daily. Branch spray cetirizine 0 Yes [id number] 10mg Take 1 Univers 10 mg 9-10 tablet by ity of tablet 00:00: mouth [place] 00 daily. Medical Branch benzonatate 0 Yes [id number] 200mg Take 1 Univers 200 mg 9-10 capsule by ity of capsule 00:00: mouth 3 [place] 00 (three) Medical times Branch daily as needed for Cough. ciprofloxac 0 Yes [id number] 4[drp] Place 4 Univers in-dexameth 9-10 Drops in ity of asone 00:00: left ear 2 [place] 0.3-0.1 % 00 (two) Medical otic drops times Branch daily. fluticasone 0 Yes [id number] 2{spray Use 2 Univers propionate 9-10 } Sprays in ity of 50 00:00: each [place] mcg/actuati 00 nostril Medic al on nasal daily. Branch spray cetirizine 0 Yes [id number] 10mg Take 1 Univers 10 mg 9-10 tablet by ity of tablet 00:00: mouth [place] 00 daily. Medical Branch benzonatate 0 Yes [id number] 200mg Take 1 Univers 200 mg 9-10 capsule by ity of capsule 00:00: mouth 3 [place] 00 (three) Medical times Branch daily as needed for Cough. ciprofloxac 0 Yes [id number] 4[drp] Place 4 Univers in-dexameth 9-10 Drops in ity of asone 00:00: left ear 2 [place] 0.3-0.1 % 00 (two) Medical otic drops times Branch daily. fluticasone 2020-0 Yes [id number] 2{spray Use 2 Univers propionate 9-10 } Sprays in ity of 50 00:00: each [place] mcg/actuati 00 nostril Medic al on nasal daily. Branch spray cetirizine 2020-0 Yes [id number] 10mg Take 1 Univers 10 mg 9-10 tablet by ity of tablet 00:00: mouth [place] 00 daily. Medical Branch benzonatate 2020-0 Yes [id number] 200mg Take 1 Univers 200 mg 9-10 capsule by ity of capsule 00:00: mouth 3 00 (three) Medical times Branch daily as needed for Cough. ciprofloxac 0 Yes [id number] 4[drp] Place 4 Univers in-dexameth 9-10 Drops in ity of asone 00:00: left ear 2 [place] 0.3-0.1 % 00 (two) Medical otic drops times Branch daily. fluticasone 2020-0 Yes [id number] 2{spray Use 2 Univers propionate 9-10 } Sprays in ity of 50 00:00: each [place] mcg/actuati 00 nostril Medic al on nasal daily. Branch spray cetirizine 2020-0 Yes [id number] 10mg Take 1 Univers 10 mg 9-10 tablet by ity of tablet 00:00: mouth [place] 00 daily. Medical Branch benzonatate 0 Yes [id number] 200mg Take 1 Univers 200 mg 9-10 capsule by ity of capsule 00:00: mouth 3 00 (three) Medical times Branch daily as needed for Cough. ciprofloxac 0 Yes [id number] 4[drp] Place 4 Univers in-dexameth 9-10 Drops in ity of asone 00:00: left ear 2 [place] 0.3-0.1 % 00 (two) Medical otic drops times Branch daily. fluticasone 2020-0 Yes [id number] 2{spray Use 2 Univers propionate 9-10 } Sprays in ity of 50 00:00: each [place] mcg/actuati 00 nostril Medic al on nasal daily. Branch spray cetirizine 2020-0 Yes [id number] 10mg Take 1 Univers 10 mg 9-10 tablet by ity of tablet 00:00: mouth [place] 00 daily. Medical Branch benzonatate 2020-0 Yes [id number] 200mg Take 1 Univers 200 mg 9-10 capsule by ity of capsule 00:00: mouth 3 [place] 00 (three) Medical times Branch daily as needed for Cough. ciprofloxac 2020-0 Yes [id number] 4[drp] Place 4 Univers in-dexameth 9-10 Drops in ity of asone 00:00: left ear 2 [place] 0.3-0.1 % 00 (two) Medical otic drops times Branch daily. fluticasone Yes [id number] 2{spray Use 2 Univers propionate 9-10 } Sprays in ity of 50 00:00: each [place] mcg/actuati 00 nostril Medic al on nasal daily. Branch spray cetirizine 0 Yes [id number] 10mg Take 1 Univers 10 mg 9-10 tablet by ity of tablet 00:00: mouth [place] 00 daily. Medical Branch benzonatate 0 Yes [id number] 200mg Take 1 Univers 200 mg 9-10 capsule by ity of capsule 00:00: mouth 3 (three) Medical times Branch daily as needed for Cough. ciprofloxac Yes [id number] 4[drp] Place 4 Univers in-dexameth 9-10 Drops in ity of asone 00:00: left ear 2 [place] 0.3-0.1 % 00 (two) Medical otic drops times Branch daily. fluticasone Yes [id number] 2{spray Use 2 Univers propionate 9-10 } Sprays in ity of 50 00:00: each [place] mcg/actuati 00 nostril Medic al on nasal daily. Branch spray cetirizine 0 Yes [id number] 10mg Take 1 Univers 10 mg 9-10 tablet by ity of tablet 00:00: mouth [place] 00 daily. Medical Branch benzonatate 0 Yes [id number] 200mg Take 1 Univers 200 mg 9-10 capsule by ity of capsule 00:00: mouth 3 (three) Medical times Branch daily as needed for Cough. ciprofloxac 0 Yes [id number] 4[drp] Place 4 Univers in-dexameth 9-10 Drops in ity of asone 00:00: left ear 2 [place] 0.3-0.1 % 00 (two) Medical otic drops times Branch daily. fluticasone 0 Yes [id number] 2{spray Use 2 Univers propionate 9-10 } Sprays in ity of 50 00:00: each [place] mcg/actuati 00 nostril Medic al on nasal daily. Branch spray cetirizine 0 Yes [id number] 10mg Take 1 Univers 10 mg 9-10 tablet by ity of tablet 00:00: mouth [place] 00 daily. Medical Branch benzonatate 2020-0 Yes [id number] 200mg Take 1 Univers 200 mg 9-10 capsule by ity of capsule 00:00: mouth 3 [place] 00 (three) Medical times Branch daily as needed for Cough. ciprofloxac 2020-0 Yes [id number] 4[drp] Place 4 Univers in-dexameth 9-10 Drops in ity of asone 00:00: left ear 2 [place] 0.3-0.1 % 00 (two) Medical otic drops times Branch daily. fluticasone 2020-0 Yes [id number] 2{spray Use 2 Univers propionate 9-10 } Sprays in ity of 50 00:00: each [place] mcg/actuati 00 nostril Medic al on nasal daily. Branch spray benzonatate Yes TAKE 1 Univ ers 200 mg 9-07 CAPSULE BY ity of capsule 00:00: MOUTH 3 [place] 00 TIMES A Medical DAY Branch NEEDED FOR COUGH benzonatate 0 Yes TAKE 1 Univ ers 200 mg 9-07 CAPSULE BY ity of capsule 00:00: MOUTH 3 [place] 00 TIMES A Medical DAY Branch NEEDED FOR COUGH benzonatate 0 Yes TAKE 1 Univ ers 200 mg 9-07 CAPSULE BY ity of capsule 00:00: MOUTH 3 [place] 00 TIMES A Medical DAY Branch NEEDED FOR COUGH benzonatate 2020-0 Yes TAKE 1 Univ ers 200 mg 9-07 CAPSULE BY ity of capsule 00:00: MOUTH 3 [place] 00 TIMES A Medical DAY Branch NEEDED FOR COUGH benzonatate 2020-0 Yes TAKE 1 Univ ers 200 mg 9-07 CAPSULE BY ity of capsule 00:00: MOUTH 3 [place] 00 TIMES A Medical DAY Branch NEEDED FOR COUGH benzonatate 2020-0 Yes TAKE 1 Univ ers 200 mg 9-07 CAPSULE BY ity of capsule 00:00: MOUTH 3 [place] 00 TIMES A Medical DAY Branch NEEDED FOR COUGH benzonatate 2020-0 Yes TAKE 1 Univ ers 200 mg 9-07 CAPSULE BY ity of capsule 00:00: MOUTH 3 [place] 00 TIMES A Medical DAY Branch NEEDED FOR COUGH benzonatate 2020-0 Yes TAKE 1 Univ ers 200 mg 9-07 CAPSULE BY ity of capsule 00:00: MOUTH 3 [place] 00 TIMES A Medical DAY Branch NEEDED FOR COUGH benzonatate Yes TAKE 1 Univ ers 200 mg 907 CAPSULE BY ity of capsule 00:00: MOUTH 3 [place] 00 TIMES A Medical DAY Branch NEEDED FOR COUGH losartan Yes Take by Unive rs potassium 2-06 mouth. ity of (LOSARTAN 17:45: [place] ORAL) 11 Medical Branch losartan Yes Take by Unive rs potassium 2-06 mouth. ity of (LOSARTAN 17:45: [place] ORAL) 11 Medical Branch losartan Yes Take by Unive rs potassium 2-06 mouth. ity of (LOSARTAN 17:45: [place] ORAL) 11 Medical Branch losartan Yes Take by Unive rs potassium 2-06 mouth. ity of (LOSARTAN 17:45: [place] ORAL) 11 Medical Branch losartan Yes Take by Unive rs potassium 2-06 mouth. ity of (LOSARTAN 11:45: [place] ORAL) 11 Medical Branch losartan Yes Take by Unive rs potassium 2-06 mouth. ity of (LOSARTAN 11:45: [place] ORAL) 11 Medical Branch losartan Yes Take by Unive rs potassium 2-06 mouth. ity of (LOSARTAN 11:45: [place] ORAL) 11 Medical Branch losartan Yes Take by Unive rs potassium 2-06 mouth. ity of (LOSARTAN 11:45: [place] ORAL) 11 Medical Branch losartan Yes Take by Unive rs potassium 2-06 mouth. ity of (LOSARTAN 11:45: [place] ORAL) 11 Medical Branch losartan Yes Take by Unive rs potassium 2-06 mouth. ity of (LOSARTAN 11:45: [place] ORAL) 11 Medical Branch losartan Yes Take by Unive rs potassium 2-06 mouth. ity of (LOSARTAN 11:45: [place] ORAL) 11 Medical Branch losartan Yes Take by Unive rs potassium 2-06 mouth. ity of (LOSARTAN 11:45: [place] ORAL) 11 Medical Branch Immunizations Ordered Immunization Filled Immunization Date Status Commen ts Source Name Name Influenza Virus 2021-01-22 Completed Aline sampson Vaccine, No Preserv, 00:00:00 age 6 months and up Influenza Virus 2021-01-22 Completed Aline sampson Vaccine, No Preserv, 00:00:00 age 6 months and up Influenza Virus 2021-01-22 Completed Aline sampson Vaccine, No Preserv, 00:00:00 age 6 months and up Vital Signs Vital Name Observation Time Observation Value Comments Source Systolic blood 2021-08-28 03:00:00 131 mm[Hg] Univer sity of pressure [facility] Diastolic blood 2021-08-28 03:00:00 83 mm[Hg] Unive rsity [facility] Heart rate 2021-08-28 03:00:00 63 /min [facility] Respiratory rate 2021-08-28 03:00:00 18 /min [facility] Oxygen saturation in 2021-08-28 03:00:00 97 /min [facility] blood by [facility] Pulse oximetry Branch Body temperature 2021-08-28 00:47:00 36.94 [place] [facility] Body weight 2021-08-28 00:47:00 103.42 kg [facility] BMI 2021-08-28 00:47:00 40.39 kg/m2 [facility] Systolic blood 2021-06-27 21:15:00 119 mm[Hg] Aline Seybold pressure Diastolic blood 2021-06-27 21:15:00 74 mm[Hg] Kelse y Seybold pressure Heart rate 2021-06-27 21:15:00 66 /min Aline S emilybold Body temperature 2021-06-27 21:15:00 36.67 [place] Kisha ey Seybold Respiratory rate 2021-06-27 21:15:00 14 /min Kisha ey [place] Body height 2021-06-27 21:15:00 160 cm Aline S emilybold Body weight 2021-06-27 21:15:00 103.602 kg Aline S emilybold BMI 2021-06-27 21:15:00 40.46 kg/m2 Aline S eybold Systolic blood 2021-06-05 21:14:00 118 mm[Hg] Aline Seybold pressure Diastolic blood 2021-06-05 21:14:00 72 mm[Hg] Kelse y Seybold pressure Heart rate 2021-06-05 21:14:00 73 /min Aline S eybold Body temperature 2021-06-05 21:14:00 36.28 [place] Kisha ey Seybold Respiratory rate 2021-06-05 21:14:00 16 /min Kisha ey Seybold Body height 2021-06-05 21:14:00 160 cm Aline S eybold Body weight 2021-06-05 21:14:00 102.513 kg Aline S eybold BMI 2021-06-05 21:14:00 40.03 kg/m2 Aline S eybold Heart rate 2021-05-23 13:23:00 75 /min Aline S eybold Body temperature 2021-05-23 13:23:00 36.28 [place] Kisha ey Seybold Respiratory rate 2021-05-23 13:23:00 15 /min Kisha ey Seybold Body height 2021-05-23 13:23:00 160 cm Aline S eybold Body weight 2021-05-23 13:23:00 101.606 kg Aline S eybold BMI 2021-05-23 13:23:00 39.68 kg/m2 Aline S eybold Oxygen saturation in 2021-05-23 13:23:00 99 /min Aline Seybold Arterial blood by Pulse oximetry Systolic blood 2021-05-23 13:23:00 122 mm[Hg] Aline Seybold pressure Diastolic blood 2021-05-23 13:23:00 86 mm[Hg] Kelse y Seybold pressure Heart rate 2021-05-23 13:23:00 75 /min Aline S eybold Body temperature 2021-05-23 13:23:00 36.28 [place] Kisha ey Seybold Respiratory rate 2021-05-23 13:23:00 15 /min Kisha ey Seybold Body height 2021-05-23 13:23:00 160 cm Aline S eybold Body weight 2021-05-23 13:23:00 101.606 kg Aline S eybold BMI 2021-05-23 13:23:00 39.68 kg/m2 Aline S eybold Oxygen saturation in 2021-05-23 13:23:00 99 /min Aline Seybold Arterial blood by Pulse oximetry Systolic blood 2021-05-23 13:23:00 122 mm[Hg] Aline Garcia pressure Diastolic blood 2021-05-23 13:23:00 86 mm[Hg] Tracy Garcia pressure Systolic blood 2021-02-10 16:34:00 111 mm[Hg] Univer sity of pressure [place] [facility] Diastolic blood 2021-02-10 16:34:00 74 mm[Hg] Unive rsity of pressure [place] [facility] Heart rate 2021-02-10 16:34:00 55 /min [facility] [place] [facility] Body temperature 2021-02-10 16:34:00 36.17 [place] Univ ersity of [place] [facility] Respiratory rate 2021-02-10 16:34:00 18 /min Univ ersity of [place] [facility] Body height 2021-02-10 16:34:00 160 cm [facility] [place] [facility] Body weight 2021-02-10 16:34:00 100.018 kg [facility] [place] [facility] BMI 2021-02-10 16:34:00 39.06 kg/m2 Universi ty of [place] [facility] Oxygen saturation in 2021-02-10 16:34:00 97 /min University of Arterial blood by [facility] Pulse oximetry Branch Systolic blood 2021-01-31 00:57:00 137 mm[Hg] Univer sity of pressure [place] [facility] Diastolic blood 2021-01-31 00:57:00 86 mm[Hg] Unive rsity of pressure [place] [facility] Heart rate 2021-01-31 00:57:00 72 /min [facility] [place] [facility] Body height 2021-01-31 00:57:00 160 cm [facility] [place] [facility] Body weight 2021-01-31 00:57:00 101.606 kg Universi ty of [place] [facility] BMI 2021-01-31 00:57:00 39.68 kg/m2 [facility] [place] [facility] Oxygen saturation in 2021-01-31 00:57:00 97 /min University of Arterial blood by [facility] frank Pulse oximetry Branch Systolic blood 2020-10-18 22:07:00 119 mm[Hg] Univer sity of pressure [place] [facility] Diastolic blood 2020-10-18 22:07:00 73 mm[Hg] Unive rsity of pressure [place] [facility] Heart rate 2020-10-18 22:07:00 66 /min [facility] Body temperature 2020-10-18 22:07:00 36.67 [place] [facility] Respiratory rate 2020-10-18 22:07:00 15 /min [facility] Body height 2020-10-18 22:07:00 157.5 cm [facility] Body weight 2020-10-18 22:07:00 101.152 kg [facility] BMI 2020-10-18 22:07:00 40.79 kg/m2 [facility] Oxygen saturation in 2020-10-18 22:07:00 99 /min [facility] blood by [facility] Pulse oximetry Branch Procedures Procedure Date / Time Performing Clinician Source Performed POCT TEST 2021-08-28 02:54:00 Erickson Fan [facility] CT LUMBAR SPINE WO 2021-08-28 01:56:12 Erickson Fan [facility] CONTRAST [facility] CT ABDOMEN PELVIS W 2021-08-28 01:55:17 Erickson Fan [facility] CONTRAST [facility] COMP. METABOLIC PANEL 2021-08-28 01:34:00 Erickson Fan [facility] ([id number]) [facility] CBC WITH DIFF 2021-08-28 01:34:00 Erickson Fan Timbo o [facility] PROTHROMBIN TIME / INR 2021-08-28 01:34:00 Erickson Fan [facility] ACTIVATED PARTIAL 2021-08-28 01:34:[address] [facility] THRMPLAS RYLAN [facility] URINALYSIS 2021-08-28 01:34:00 Erickson Fan Timbo o [facility] URINALYSIS 2021-08-28 00:53:00 Meng Erickson [facility] NOTICE OF PRIVACY 2021-08-28 00:39:26 Doctor Unassigned, No [facility] PRACTICES [facility] CONSENT/REFUSAL FOR 2021-08-28 00:38:59 [facility] Medical [place] ASSIGNMENT OF BENEFITS 2020-10-18 20:42:40 Doctor Unassigned, No [facility] Encounters Start End Encounter Admission Attending Care Care Encounter Source Date/Time Date/Time Type Type Clinicians Facility Department ID 2021-08-26 Outpatient Annel Tse [facility] [id number] 2 Common 15:33:00 [id number] [facility] 2021-03-05 Outpatient Annel Tse [facility] [id number] 2 Common 13:12:21 [id number] [facility] 2021-03-05 Outpatient TseAnnel strong [facility] [id number] 2 Common 12:15:17 [id number] [facility] 2021-03-05 Outpatient Annel Tse [facility] [id number] 2 Common 12:14:12 [id number] [facility] 2021-11-21 2021-11-21 Outpatient ALINE CONNELL [id number] Aline 16:15:00 16:15:00 AURELIO savage 2021-09-26 2021-09-26 Outpatient ALINE CONNELL [id number] Aline 16:15:00 16:15:00 AURELIO savage 2021-09-04 2021-09-04 Outpatient R RADIOLOGY [facility] [id number] Univers 00:00:00 00:00:00 [id number] [facility] 2021-08-29 2021-08-29 Outpatient ALINE CONNELL [id number] Aline 00:00:00 00:00:00 AURELIO savage 2021-08-28 2021-08-28 Office Bam Connell [id number] Aline 11:15:00 11:30:00 Visit Aurelio Vogel [id number] Se sampson [id number] 2021-08-27 2021-08-27 Emergency X MENG [facility] ERT [id number] Univers 19:53:00 22:06:00 ERICKSON [facility] 2021-08-27 2021-08-27 [facility] [facility] 1.2.319.092 [id number] Univers 19:53:00 22:06:00 [facility] 350.1.13.10 i ty [facility] 4.2.7.2.686 [facility] [id number] [facility] [address] 2021-08-27 2021-08-27 Outpatient PREZAALINE Rangel [id number] [place] 00:00:00 00:00:00 AURELIO Seybol d 2021-08-26 2021-08-26 Outpatient PREZAALINE Rangel [id number] [place] 00:00:00 00:00:00 AURELIO Seybol d 2021-08-22 2021-08-22 Outpatient LAB90 ALINE PASCUAL [id number] [place] 10:40:00 10:40:00 Seybol d 2021-08-22 2021-08-22 Office Bam Connell 1.2.840.114 [id number] [place] 09:30:00 09:45:00 Visit Aurelio Vogel 350.1.13.13 Se annetteold 1.2.7.2.686 [id number] 2021-07-26 2021-07-26 Outpatient PREALINE GORDON [id number] [place] 00:00:00 00:00:00 AURELIO Seybol d 2021-07-25 2021-07-25 Outpatient ALINE CONNELL [id number] Aline 16:15:00 16:15:00 AURELIO Seybol d 2021-07-25 2021-07-25 Office Bam Connell 1.2.840.114 [id number] [place] 15:45:00 16:00:00 Visit Aurelio Vogel 350.1.13.13 Se ybold 1.2.7.2.686 [id number] 0 2021-07-23 2021-07-23 Outpatient ALINE CONNELL [id number] Aline 00:00:00 00:00:00 AURELIO Seybol d 2021-07-23 2021-07-23 Outpatient ALINE CONNELL [id number] [place] 00:00:00 00:00:00 AURELIO Seybol d 2021-07-22 2021-07-22 Outpatient PREZAS, ALINE PASCUAL [id number] Aline 00:00:00 00:00:00 AURELIO Seybol d 2021-07-19 2021-07-19 Outpatient PREZAS, ALINE PASCUAL [id number] [place] 00:00:00 00:00:00 AURELIO Seybol d 2021-07-18 2021-07-18 Outpatient PREZAS, ALINE PASCUAL [id number] Aline 00:00:00 00:00:00 AURELIO Seybol d 2021-07-17 2021-07-17 Outpatient PREZAS, ALINE PASCUAL [id number] Aline 00:00:00 00:00:00 AURELIO Seybol d 2021-07-08 2021-07-08 Outpatient PREZAS, ALINE PASCUAL [id number] [place]ine 00:00:00 00:00:00 AURELIO Seybol d 2021-06-27 2021-06-27 Office PrezaBam rangel 1.2.840.114 [id number] [place] 16:15:00 16:30:00 Visit Aurelio Vogel 350.1.13.13 Se ybold 1.2.7.2.686 [id number] 2021-06-19 2021-06-19 Outpatient PREZAS ALINE PASCUAL [id number] Aline 16:15:00 16:15:00 AURELIO Seybol d 2021-06-10 2021-06-10 Outpatient PREZAS, ALINE PASCUAL [id number] [place]ine 00:00:00 00:00:00 AURELIO Seybol d 2021-06-09 2021-06-09 Outpatient PREZAS, ALINE PASCUAL [id number] [place]ine 00:00:00 00:00:00 AURELIO Seybol d 2021-06-05 2021-06-05 Office PREEVAN Kuhn 1.2.840.114 [id number] Aline 16:15:00 16:15:00 Visit AURELIO Vogel 350.1.13.13 Se ybold 1.2.7.2.686 [id number] 2021-06-03 2021-06-03 Outpatient PREZAS ALINE PASCUAL [id number] Aline 00:00:00 00:00:00 AURELIO Seybol d 2021-05-26 2021-05-26 Outpatient ALINE CONNELL ALINE [id number] Aline 00:00:00 00:00:00 AURELIO Seybol d 2021-05-23 2021-05-23 Outpatient LAB90 ALINE ALINE [id number] Aline 09:25:00 09:25:00 Seybol d 2021-05-23 2021-05-23 Office Bam Connell 1.2.840.114 [id number] [place] 08:30:00 09:00:00 Visit Aurelio Jaspreet 350.1.13.13 Se [place] 1.2.7.2.686 [id number] 2021-05-23 2021-05-23 Outpatient ALINE CONNELLSEY [id number] Aline 08:30:00 08:30:00 AURELIO Seybol d 2021-02-19 2021-02-19 [facility] [id number]-20 Univers 09:30:00 09:30:00 [id number] 2021-02-10 [facility] [id number] Univers 10:40:00 11:06:26 [facility] 2021-02-10 2021-02-10 Urgent Tamy Finney [facility] 1.2.840.114 [id number] Univers 10:40:00 11:00:00 [facility] 350.1.13.10 [facility] 4.2.7.2.686 Ash as [place] [phone] [address] MEDICAL OFFICE BUILDING 2021-02-10 2021-02-10 [facility] [id number] -20 Univers 10:40:00 10:40:00 BRE [id number] ity [facility] 2021-01-31 2021-01-31 Letter TAMY Bowens 1.2.840.114 [id number] Univers 00:00:00 00:00:00 (Out) Haylee PEREZ 350.1.13.10 it y of [facility] 4.2.7.2.686 Ash as [phone] [address] 2021-01-30 2021-01-30 Outpatient R KAUSHIK [facility] [id number] Univers 18:00:00 20:31:53 MAIKEL ity [facility] 2021-01-30 2021-01-30 Urgent Only, Ang Db Test [facility] 1.2.840. 114 [id number] Univers 18:00:00 18:15:00 Care Kaushik [facility] 350.1.13.10 ity of [place] 4.2.7.2.686 Ash as [place] [id number] [address] MEDICAL OFFICE BUILDING 2021-01-30 2021-01-30 Outpatient R [facility] [id number] -20 Univers 18:00:00 18:00:00 [id number] ity [facility] 2021-01-29 2021-01-29 Outpatient R [facility] [id number] -[id number] Univers 20:00:00 20:00:00 [id number] ity [facility] 2021-01-29 2021-01-29 Outpatient R KAUSHIK [facility] [id number] Univers 20:00:00 20:00:00 [facility] 2020-12-07 2020-12-07 [facility] 1.2.772.217 [id number] Univers 00:00:00 00:00:00 Abena HEALTH 350.1.13.10 it y of [place] 4.2.7.2.686 Ash as [place] [id number] [address] MEDICAL OFFICE BUILDING 2020-12-07 2020-12-07 [facility] 1.2.717.605 [id number] Univers 00:00:00 00:00:00 Abena [facility]ALTH 350.1.13.10 it y of [place] 4.2.7.2.686 Ash as [place] [id number] [address] MEDICAL OFFICE [facility] 2020-11-09 2020-11-09 [facility] 1.2.395.423 [id number] Univers 00:00:00 00:00:00 Abena [facility] 350.1.13.10 it y [facility] 4.2.7.2.686 Ash as [place] [id number] [address] MEDICAL OFFICE [facility] 2020-10-18 2020-10-18 Urgent [facility] 1.2.100.450 [id number] Univers 15:42:49 17:29:43 Care [facility] 350.1.13.10 it y of [place] 4.2.7.2.686 Ash as [place]a [id number] [address] Office [facility] 2020-10-18 2020-10-18 Outpatient R [facility] [id number] -20 Univers 16:00:00 16:00:00 [id number] ity [facility] 2020-10-18 2020-10-18 [facility] [id number] Univers 16:00:00 16:00:00 ABENA ity [facility] 2020-10-18 2020-10-18 Orders Doctor MORELOS 1.2.840.114 [id number] Univers 00:00:00 00:00:00 Only Unassigned, ANA 350.1.13.10 ity of [place] [facility] 4.2.7.2.686 Ash as [id number] [address] 2020-10-18 2020-10-18 Refill [facility] 1.2.964.364 [id number] Univers 00:00:00 00:00:00 [facility] 350.1.13.10 it y of [place] 4.2.7.2.686 Ash as [place]a [phone] [address] Office [facility] 2020-10-12 2020-10-12 Letter TAMY Bowens 1.2.840.114 [id number] Univers 00:00:00 00:00:00 (Out) Haylee Wheat ANA 350.1.13.10 it y of HOSPITAL 4.2.7.2.686 Ash as [id number] [facility] 019 [place] 2020-10-11 2020-10-11 Outpatient R [facility] [id number] -[id number] Univers 20:15:00 20:15:00 [facility] 2020-10-10 2020-10-10 Outpatient R [facility] [id number] -20 Univers 19:40:00 19:40:00 [id number] [facility] 2020-10-10 2020-10-10 Outpatient R KAUSHIK [facility] [id number] Univers 19:40:00 19:40:00 MAIKEL [facility] 2020-10-10 2020-10-10 Laboratory Only, Ang Db Test [facility] 1.2.8 40.114 [id number] Univers 18:52:13 19:02:13 Only Maikel Faulkner [facility] 350.1.13.10 [facility] 4.2.7.2.686 Ash as [place]?Blea [id number] Pr dical [address] Medical Office Building 2020-05-25 2020-05-25 Outpatient R [facility] [id number] -20 Univers 13:00:00 13:00:00 [id number] [facility] 2020-05-25 2020-05-25 Telephone Unknown, [facility] 1.2.840.114 [id number] 00:00:00 00:00:00 Attending Health 350.1.13.10 Surgical 4.2.7.2.686 Specialti [id number] [address] [place] 2020-04-30 2020-04-30 Laboratory Lab, Adc [facility] 1.2.840.114 [id number] 13:56:37 14:16:37 Only Fam Pob I Health 350.1.13.10 [place] 4.2.7.2.686 Professio [phone] nal 044 Office Building One 2020-04-30 2020-04-30 Outpatient R [facility] [id number] -20 Univers 13:40:00 13:40:00 [id number] [facility] 2020-04-30 2020-04-30 Outpatient R ROSEMARIE [facility] [id number] Univers 13:40:00 13:40:00 ROBERTH [facility] 2020-04-30 2020-04-30 Alexander Houston, [facility] 1.2.840.114 [id number] 00:00:00 00:00:00 (Out) [facility] 350.1.13.10 [place] 4.2.7.2.686 Profjohnio [id number] nal 044 Office Building One 2020-04-25 2020-04-25 Patient Henry [facility] 1.2.840.114 [id number] 00:00:00 00:00:00 Outreach Dez PRIMARY 350.1.13.10 [facility] 4.2.7.2.686 PAVILLION [id number] 2020-03-16 2020-03-16 Outpatient R [facility] [id number] -[id number] Univers 11:40:00 11:40:00 [id number] [facility] 2020-03-16 2020-03-16 [facility] [id number] Univers 11:40:00 11:40:00 MAIKEL [facility] 2020-03-08 2020-03-08 Outpatient R [facility] [id number] -20 Univers 14:00:00 14:00:00 [id number] [facility] 2019-09-06 2019-09-06 Patient Doctor TAMY 1.2.840.114 [id number] 00:00:00 00:00:00 Secure Msg Unassigned, ANA 350.1.13.10 [place] [facility] 4.2.7.2.686 [id number] 2019-09-05 2019-09-05 Laboratory Lab, [facility] 1.2.840.114 [id number] 14:42:37 15:02:37 Only Fam Pob I Health 350.1.13.10 [place] 4.2.7.2.686 Professio [id number] nal 044 Office Building One 2019-09-05 2019-09-05 Outpatient R [facility] [id number] -20 Univers 15:00:00 15:00:00 [id number] [facility] 2019-09-05 2019-09-05 Outpatient R [facility] [id number] Univers 15:00:00 15:00:00 [facility] 2019-09-05 2019-09-05 Letter Doctor TAMY 1.2.840.114 [id number] 00:00:00 00:00:00 (Out) Unassigned, ANA 350.1.13.10 [facility] 4.2.7.2.686 [id number] 2019-08-08 2019-08-08 Orders Doctor TAMY 1.2.840.114 [id number] 00:00:00 00:00:00 Only Unassigned, ANA 350.1.13.10 [facility] 4.2.7.2.686 [id number] 2019-08-04 2019-08-04 Telephone Genoveva NERAVEN 1.2.840.114 [id number] 00:00:00 00:00:00 Elsie VERDUZCO 350.1.13.10 CARE 4.2.7.2.686 CENTER AT [phone] FELIPE [address] [place] [address] 2019-07-20 2019-07-20 Livestock Counter Wander Izaguirre [facility] 1.2.840.114 [id number] 07:55:20 08:10:20 Visit Lab Main Raysa 350.1.13.10 [place] 4.2.7.2.686 Professio [id number] [facility] 353 [facility] 2019-07-20 2019-07-20 Outpatient R [facility] [id number] -20 Univers 07:30:00 07:30:00 [id number] [facility] 2019-07-20 2019-07-20 Outpatient R [facility] [id number] Univers 07:30:00 07:30:00 [facility] 2019-07-18 2019-07-18 Outpatient [facility] [id number] Univers 15:30:00 15:30:00 ELSIE [facility] Results Test Description Test Time Test Comments Results Result Comments Source POCT TEST 2021-08-28 02:54:00 Test Item Value Reference Range Interpretation Comme nts POCT PREG (test code = 1605) negative Lab Interpretation (test code = 82858-1) [id number] 02:23:55 Test Item Value Reference Range Interpretation Comments WBC (test code = See_Comment H [Automated 9190-2) message] The sy stem which generated this result transmitted reference range : 4.30 - 11.10 10*3/?L. The reference range was not used to interpret this result as normal/abnormal . RBC (test code = See_Comment H [Automated 789-8) message] The sy stem which generated this result transmitted reference range : 3.93 - 5.25 10*6/?L. The reference range was not used to interpret this result as normal/abnormal . HGB (test code = 14.7 g/dL 11.6-15 718-7) HCT (test code = 44.0 % 35.7-45.2 4544-3) MCV (test code = 83.5 fL 80.6-95.5 787-2) MCH (test code = 27.9 pg 25.9-32.8 785-6) MCHC (test code = 33.4 g/dL 31.6-35.1 786-4) RDW-SD (test code = 38.2 fL 39-49.9 L 33958-9) RDW-CV (test code = 12.6 % 12-15.5 788-0) PLT (test code = See_Comment H [Automated 777-3) message] The sy stem which generated this result transmitted reference range : 166 - 358 10*3/ ?L. The reference r jana was not used to interpret this result as normal/abnormal . MPV (test code = 10.2 fL 9.5-12.9 53561-3) NRBC/100 WBC (test See_Comment [Automat ed code = 1370443434) message] The system which generated this result transmitted reference range : 0.0 - 10.0 /100 WBCs. The refer ence range was not u sed to interpret th is result as normal/abnormal . NRBC x10^3 (test code See_Comment [Auto mated = 8326604392) message] The s ystem which generated this result transmitted reference range : 10*3/?L. The reference range was not used to interpret this result as normal/abnormal . SEG % (test code = 52 % 33-76 00579-0) BAND % (test code = 5 % 0-1 H 71112-7) LYMPH % (test code = 32 % 14-54 00832-7) REACT LYMPH % (test 2 % code = 0189454341) MONO % (test code = 7 % 0-4 H 74957-1) EOS % (test code = 2 % 0-3 98310-1) ANC (test code = 7.63 10*3/uL 1.88-7.09 H 753-4) Lab Interpretation Abnormal (test code = 96737-7) [facility]. METABOLIC PANEL (20910)2021-08-28 01:53:56 Test Item Value Reference Range Interpretation Comments NA (test code = 138 mmol/L 135-145 0928498833) K (test code = 5.1 mmol/L 3.5-5 H 6489814739) CL (test code = 104 mmol/L 98-108 6020213463) CO2 TOTAL (test code = 26 mmol/L 23-31 7864911728) AGAP (test code = 2-16 3603869084) BUN (test code = 15 mg/dL 7-23 8483887698) GLUCOSE (test code = 95 mg/dL 70-110 7908048132) CREATININE (test code = 0.58 mg/dL 0.5-1.04 6275978160) TOTAL BILI (test code = 0.9 mg/dL 0.1-1.8 1058443518) CALCIUM (test code = 9.2 mg/dL 8.6-10.6 9542553862) T PROTEIN (test code = 7.4 g/dL 6.3-8.2 9548388009) ALBUMIN (test code = 4.1 g/dL 3.5-5 6900775211) ALK PHOS (test code = 61 U/L 34-122 5363075185) ALTv (test code = 15 U/L 5-35 1742-6) AST(SGOT) (test code = 22 U/L 13-40 4464940943) eGFR (test code = mL/min/1.73m2 6490134645) PAVITHRA (test code = PAVITHRA) Association of Glomerular Filtration Rate (GFR) and Staging of Kidney Disease* + --+ --+ ------+| GFR (mL/min/1.73 m2) ?| With Kidney Damage ?| ?Without Kidney Damage+ --------+ --------+ +| ?>90 ?| ?Stage one ?| ? Normal ?+ ---+ ---+ -------+| ?60-89 ?| ?Stage two ?| ? Decreased GFR ? + --+ --+ ------+| ?30-59 ?| ?Stage three ?| ? Stage three ? + --+ --+ ------+| ?15-29 ?| ?Stage four ? | ? Stage four ?+ ---+ ---+ -------+| ?<15 (or dialysis) ? ?| ?Stage five ? | ? Stage five ?+ ---+ ---+ -------+ *Each stage assumes the associated GFR level has been in effect for at least three months. ?Stages 1 to 5, with or without kidney disease, indicate chronic kidney disease. Notes: Determination of stages one and two (with eGFR >59mL/min/1.73 m2) requires estimation of kidney damage for at least three months as defined by structural or functional abnormalities of the kidney, manifested by either:Pathological abnormalities or Markers of kidney damage (including abnormalities in the composition of the blood or urine or abnormalities in imaging tests). Lab Interpretation Abnormal (test code = 86521-9) [facility] [id number] 01:51:55 Test Item Value Reference Range Interpretation Comments APTT Patient (test See_Comment [Automat ed code = 3173-2) message] The system which generated this result transmitted reference range : 23 - 38 Seconds . The reference range was not used to interpr et this result as normal/abnormal . PAVITHRA (test code = PAVITHRA) The [facility] patient population mean normal value for aPTT is 30 seconds. Lab Interpretation Normal (test code = 15220-7) [facility] / [id number] 01:49:54 Test Item Value Reference Range Interpretation Comments PROTIME PATIENT (test See_Comment [Auto mated message] code = 5964-2) The system wh ich generated this result transmitted ref erence range: 12.0 - 1 4.7 Seconds. The re ference range was not u sed to interpret this result as normal/abnor mal. INR (test code = 6301-6) Nor mal INR <1.1; Warfarin Therap eutic range 2.0 to 3. 0 or 2.5 to 3.5, dep ending upon the indica tions. Lab Interpretation (test Normal code = 98432-0) [facility]"
[2021-08-29] MEDS ORDERED: KETOROLAC 30 MG/ML INJ ONE (13:54)
[2021-08-29 14:07] LABS: Urine Blood Negative (Negative); Urine Glucose Negative (Negative); Urine Protein Negative (Negative)
[2021-08-29 14:19] LABS: Absolute Lymphocytes (CBC) 3.5 K/uL (0.7-4.9); Hematocrit 43.9 % (36.0-45.0); Lymphocytes % 32.2 % (15.3-44.8); MCV 84.6 fL (80-100); MPV 8.6 fL (7.6-11.3); RBC Red Blood Cell Count 5.19 M/uL (3.86-4.86)
[2021-08-29 14:42] LABS: Urine Bacteria <20 /HPF (<20); Urine RBC <5 /HPF (None Seen)
--- NOTE | 2021-08-29 16:17 | RAD REPORT ---
EXAM DESCRIPTION: US - Transvaginal Study Probe - 08/29/2021 3:36 pm CLINICAL HISTORY: right lower abdomen pain Pelvic pain. COMPARISON: Transvaginal Study Probe dated 11/06/2019 FINDINGS: The uterus is normal in size, shape and echotexture. The uterus measures 6.8 x 6.1 x 4.3 c m. The endometrial stripe measures 2 mm, normal. The left ovary is normal measuring 2.9 x 2.1 x 1.9 cm. The right ovary is obscured by bowel gas. Normal Doppler blood flow was demonstrated to the left ovary. No significant pelvic ascites. IMPRESSION: Unremarkable study except for nonvisualization of the right ovary.
[2021-08-29 18:27] LABS: Albumin 3.2 g/dL (3.4-5.0); Bilirubin Total 0.8 mg/dL (0.2-1.0); Potassium 4.5 mmol/L (3.5-5.1); Protein, Total 6.9 g/dL (6.4-8.2)
--- NOTE | 2021-08-29 18:52 | EDPHYS ---
Physician Documentation [facility] Name: Meggan Mesa Age: 46 yrs Sex: Female : 1975 Arrival Date: 08/29/2021 Time: 11:36 Bed 5 Private MD: ED Physician Manpreet Mcgee HPI: 08/29 13:45 This 46 yrs old Female presents to ER via Ambulatory with complaints of Back cp Pain - kidney stones, Abdominal Pain - liver lesions. 13:45 The patient presents with pain that is acute, with no known mechanism of injury. The cp symptoms are located in the right low back. The pain radiates to the right flank and right lower abdomen. Associated signs and symptoms: Pertinent positives: radiating pain to anterior right upper leg and numbness, Pertinent negatives: chest pain, weakness. 13:45 The patient has been recently seen by a physician: in [facility], 2 day(s) ago, with similar cp presenting complaints, CT scan was done, was given a prescription for pain medications, instructed to f/u with family physician for MRI of liver due to CT showing liver masses. Patient reports MRI scheduled Wednesday. [employer]: 16:05 LMP N/A - Irregular menses, uterine ablation ph Historical: - Allergies: 12:42 PENICILLINS; ld1 - Home Meds: 12:42 None [Active]; ld1 - PMHx: 12:42 None; ld1 - PSHx: 12:42 Appendectomy; section; gastric sleeve; ld1 - Immunization history:: Adult Immunizations up to date, Client reports receiving the 2nd dose of the Covid vaccine. - Social history:: Smoking status: Patient denies any tobacco usage or history of. Patient uses alcohol, occasionally. ROS: 13:50 Constitutional: Negative for body aches, chills, fever, poor PO intake. cp 13:50 Eyes: Negative for injury, pain, redness, and discharge. cp 13:50 ENT: Negative for drainage from ear(s), ear pain, sore throat, difficulty swallowing, difficulty handling secretions. 13:50 Cardiovascular: Negative for chest pain, edema, palpitations. 13:50 Respiratory: Negative for cough, shortness of breath, wheezing. 13:50 Abdomen/GI: Positive for abdominal pain, of the right lower quadrant, Negative for vomiting, diarrhea, constipation, black/tarry stool, bowel incontinence. 13:50 Back: Positive for pain at rest, pain with movement, of the right low back. 13:50 : Negative for urinary symptoms, hematuria, bladder incontinence. 13:50 Skin: Negative for cellulitis, rash. 13:50 Neuro: Positive for numbness, of the anterior aspect right upper leg, Negative for altered mental status, dizziness, headache, weakness. 13:50 All other systems are negative. Exam: 13:55 Constitutional: The patient appears in no acute distress, alert, awake, non-toxic, well cp developed, well nourished. 13:55 Head/Face: Normocephalic, atraumatic. cp 13:55 Eyes: Periorbital structures: appear normal, Conjunctiva: normal, no exudate, no injection, Sclera: no appreciated abnormality, Lids and lashes: appear normal, bilaterally. 13:55 ENT: External ear(s): are unremarkable, Nose: is normal, Mouth: Lips: moist. 13:55 Neck: ROM/movement: is normal, is supple, without pain, no range of motions limitations. 13:55 Chest/axilla: Inspection: normal, Palpation: is normal, no crepitus, no tenderness. 13:55 Cardiovascular: Rate: normal, Rhythm: regular. 13:55 Respiratory: the patient does not display signs of respiratory distress, Respirations: normal, no use of accessory muscles, no retractions, labored breathing, is not present, Breath sounds: are clear throughout, no decreased breath sounds, no stridor, no wheezing. 13:55 Abdomen/GI: Inspection: abdomen appears normal, Bowel sounds: active, all quadrants, Palpation: soft, in all quadrants, mild abdominal tenderness, in the right lower quadrant, rebound tenderness, is not appreciated, voluntary guarding, is not appreciated, involuntary guarding, is not appreciated. 13:55 Back: pain, that is mild, of the right low back, ROM is normal, vertebral tenderness, is not appreciated. 13:55 Skin: cellulitis, is not appreciated, no rash present. 13:55 Neuro: Orientation: to person, place \T\ time. Mentation: is normal, Cerebellar function: is grossly normal, Motor: moves all fours, strength is normal, Sensation: is normal. Vital Signs: 12:32 BP 128 / 79; Pulse 62; Resp 18; Temp 97.8(TE); Pulse Ox 98% on R/A; Weight 102.06 kg; ld1 Height 5 ft. 3 in. (160.02 cm); Pain 9/10; 15:42 BP 129 / 61; Pulse 52; Resp 17; Pulse Ox 100% on R/A; tw2 16:47 BP 100 / 44; Pulse 51; Resp 17; Pulse Ox 97% on R/A; tw2 17:49 BP 109 / 66; Pulse 51; Resp 17; Pulse Ox 98% on R/A; tw2 18:21 BP 106 / 76; Pulse 60; Resp 17; Pulse Ox 100% on R/A; tw2 12:32 Body Mass Index 39.86 (102.06 kg, 160.02 cm) ld1 MDM: 13:26 Patient medically screened. cp 18:52 Data reviewed: vital signs, nurses notes, lab test result(s), radiologic studies, cp ultrasound. 18:52 Differential diagnosis: Cholelithiasis Pyelonephritis ruptured disc, sprain, cp Ureterolithiasis. Counseling: I had a detailed discussion with the patient and/or guardian regarding: the historical points, exam findings, and any diagnostic results supporting the discharge/admit diagnosis, lab results, radiology results, the need for outpatient follow up, a family practitioner. 08/29 13:41 Order name: CBC with Diff; Complete Time: 15:33 cp 08/29 13:41 Order name: CMP; Complete Time: 18:51 cp 08/29 13:41 Order name: Lipase; Complete Time: 18:51 cp 08/29 13:41 Order name: Urine Microscopic Only; Complete Time: 15:33 cp 08/29 13:46 Order name: US Transvaginal Study (Probe); Complete Time: 16:48 cp 08/29 16:48 Interpretation: Reviewed report. 08/29 14:08 Order name: Urine Dipstick-Ancillary; Complete Time: 15:33 EDMS 08/29 16:48 Interpretation: Reviewed. 08/29 13:41 Order name: IV Saline Lock; Complete Time: 16:05 cp 08/29 13:41 Order name: Labs collected and sent; Complete Time: 14:14 cp 08/29 13:41 Order name: Urine Dipstick-Ancillary (obtain specimen); Complete Time: 14:14 cp 08/29 13:41 Order name: Urine Test (obtain specimen); Complete Time: 16:05 cp 08/29 14:37 Order name: Labs - recollect needed: recollect green top; Complete Time: 18:03 bd Administered Medications: 15:45 Drug: Ketorolac 15 mg Route: IVP; Site: right hand; ph 18:03 Follow up: Response: No adverse reaction; Pain is decreased tw2 Disposition Summary: 08/29/21 18:52 Discharge Ordered Location: Home cp Problem: an ongoing problem cp Symptoms: have improved cp Condition: Stable cp Diagnosis - Lower abdominal pain, unspecified cp - Low back pain cp Followup: cp - With: Private Physician - When: 2 - 3 days - Reason: Recheck today's complaints Discharge Instructions: - Discharge Summary Sheet cp - Abdominal Pain, Adult cp - Acute Back Pain, Adult cp - Back Exercises cp Forms: - Medication Reconciliation Form cp - Thank You Letter cp - Antibiotic Education cp - Prescription Opioid Use cp Prescriptions: - Lidoderm 5 % Topical adhesive patch,medicated - apply 1 patch by TOPICAL route once daily; 20 patch; Refills: 0, Product cp Selection Permitted - Diclofenac Sodium 75 mg Oral Tablet Sustained Release - take 1 tablet by ORAL route 2 times per day; 30 tablet; Refills: 0, Product cp Selection Permitted Signatures: Dispatcher [employer] Marce Platt Patricia, RN RN ph Vinicio Olmos PA PA cp Desiree Coley RN RN ld1 Rubia Ovalles RN tw2
--- NOTE | 2021-08-29 18:52 | ER ---
Nurse's Notes [facility] Name: Meggan Mesa Age: 46 yrs Sex: Female : 1975 Arrival Date: 08/29/2021 Time: 11:36 Bed 5 Private MD: Diagnosis: Lower abdominal pain, unspecified;Low back pain Presentation: 08/29 12:32 Chief complaint: Patient states: Pt c/o right flank pain - "I went to [facility] and ld1 was told I had four spots on my liver." pt followed up with doctor and was told to come to ER if feeling worse. Coronavirus screen: At this time, the client does not indicate any symptoms associated with coronavirus-19. Ebola Screen: No symptoms or risks identified at this time. Initial Sepsis Screen: Does the patient meet any 2 criteria? No. Patient's initial sepsis screen is negative. Does the patient have a suspected source of infection? No. Patient's initial sepsis screen is negative. Risk Assessment: Do you want to hurt yourself or someone else? Patient reports no desire to harm self or others. Onset of symptoms was August 29, 2021 at 12:34. 12:32 Method Of Arrival: Ambulatory ld1 12:32 Acuity: KRUPA 3 ld1 Triage Assessment: 12:42 General: Appears in no apparent distress. comfortable, Behavior is calm, cooperative, ld1 appropriate for age. Pain: Complains of pain in right low back Pain does not radiate. Pain currently is 8 out of 10 on a pain scale. EENT: No signs and/or symptoms were reported regarding the EENT system. Neuro: Level of Consciousness is awake, alert, obeys commands, Oriented to person, place, time, situation. Cardiovascular: Capillary refill < 3 seconds Patient's skin is warm and dry. Respiratory: Airway is patent Respiratory effort is even, unlabored. GI: Abdomen is round non-distended. : No signs and/or symptoms were reported regarding the genitourinary system. Derm: No signs and/or symptoms reported regarding the dermatologic system. Musculoskeletal: No signs and/or symptoms reported regarding the musculoskeletal system. CNA: 16:05 LMP N/A - Irregular menses, uterine ablation ph Historical: - Allergies: 12:42 PENICILLINS; ld1 - Home Meds: 12:42 None [Active]; ld1 - PMHx: 12:42 None; ld1 - PSHx: 12:42 Appendectomy; section; gastric sleeve; ld1 - Immunization history:: Adult Immunizations up to date, Client reports receiving the 2nd dose of the Covid vaccine. - Social history:: Smoking status: Patient denies any tobacco usage or history of. Patient uses alcohol, occasionally. Screenin:40 Abuse screen: Denies threats or abuse. Denies injuries from another. Nutritional ph screening: No deficits noted. Tuberculosis screening: No symptoms or risk factors identified. Fall Risk None identified. Assessment: 14:22 General: Appears in no apparent distress. Behavior is calm, cooperative, appropriate ph for age, Reports chills for fever for. Pain: Complains of pain in right low back. Neuro: Level of Consciousness is awake, alert, obeys commands, Oriented to person, place, time, situation. Cardiovascular: Capillary refill < 3 seconds in bilateral fingers Patient's skin is warm and dry. Respiratory: Airway is patent Respiratory effort is even, unlabored. GI: Patient currently denies diarrhea, nausea, vomiting. : Reports pain in right in lower back. Derm: Skin is healthy with good turgor, Skin is pink, warm \\T\\ dry. Musculoskeletal: Circulation, motion, and sensation intact. Range of motion: intact in all extremities. 15:24 Reassessment: US at bedside at this time. tw2 15:43 Reassessment: Patient appears in no apparent distress at this time. No changes from tw2 previously documented assessment. Patient and/or family updated on plan of care and expected duration. Pain level reassessed. Patient is alert, oriented x 3, equal unlabored respirations, skin warm/dry/pink. 16:47 Reassessment: Patient appears in no apparent distress at this time. No changes from tw2 previously documented assessment. Patient and/or family updated on plan of care and expected duration. Pain level reassessed. Patient is alert, oriented x 3, equal unlabored respirations, skin warm/dry/pink. 17:49 Reassessment: Patient appears in no apparent distress at this time. No changes from tw2 previously documented assessment. Patient and/or family updated on plan of care and expected duration. Pain level reassessed. Patient is alert, oriented x 3, equal unlabored respirations, skin warm/dry/pink. 17:52 Reassessment: Patient appears in no apparent distress at this time. Patient and/or ph family updated on plan of care and expected duration. Pain level reassessed. Patient is alert, oriented x 3, equal unlabored respirations, skin warm/dry/pink. lab at bedside for recollect. 18:21 Reassessment: Patient appears in no apparent distress at this time. No changes from tw2 previously documented assessment. Patient and/or family updated on plan of care and expected duration. Pain level reassessed. Patient is alert, oriented x 3, equal unlabored respirations, skin warm/dry/pink. 18:33 Reassessment: pt noted to not be in exam room and personal belongings were gone. called tw2 pt at home number on file. spoke with pt. pt states "well they told me there was nothing wrong and my pain was still there so i left". i asked pt if she pulled her IV out and pt states "i sure did". provider and charge nurse notified. Vital Signs: 12:32 BP 128 / 79; Pulse 62; Resp 18; Temp 97.8(TE); Pulse Ox 98% on R/A; Weight 102.06 kg; ld1 Height 5 ft. 3 in. (160.02 cm); Pain 9/10; 15:42 BP 129 / 61; Pulse 52; Resp 17; Pulse Ox 100% on R/A; tw2 16:47 BP 100 / 44; Pulse 51; Resp 17; Pulse Ox 97% on R/A; tw2 17:49 BP 109 / 66; Pulse 51; Resp 17; Pulse Ox 98% on R/A; tw2 18:21 BP 106 / 76; Pulse 60; Resp 17; Pulse Ox 100% on R/A; tw2 12:32 Body Mass Index 39.86 (102.06 kg, 160.02 cm) ld1 ED Course: 11:36 Patient arrived in ED. as 12:18 Vinicio Olmos PA is PHCP. cp 12:18 Manpreet Mcgee MD is Attending Physician. cp 12:28 Desiree Coley, RN is Primary Nurse. ld1 12:34 Triage completed. ld1 12:42 Arm band placed on right wrist. ld1 13:31 Primary Nurse role handed off by Desiree Coley, RN ph 13:31 Denise Pascual, RN is Primary Nurse. ph 13:41 Patient has correct armband on for positive identification. Bed in low position. Call ph light in reach. Side rails up X 1. Pulse ox on. NIBP on. 14:22 Initial lab(s) drawn, by me, sent to lab. Missed attempt(s): 22 gauge in right ph antecubital area. Bleeding controlled, band aid applied, catheter tip intact. 15:38 US Transvaginal Study (Probe) In Process Unspecified. EDMS 15:45 Inserted saline lock: 24 gauge in right hand, using aseptic technique. ph 17:54 No provider procedures requiring assistance completed. ph Administered Medications: 15:45 Drug: Ketorolac 15 mg Route: IVP; Site: right hand; ph 18:03 Follow up: Response: No adverse reaction; Pain is decreased tw2 Medication: 13:41 VIS not applicable for this client. ph Outcome: 18:33 Eloped from patient exam room, after seeing physician Time discovered patient gone: tw2 August 29, 2021 at 18:33 18:52 Discharge ordered by . cp 18:53 Patient left the ED. aa5 Signatures: Dispatcher [employer] Anitha Philip Audri, RN RN aa5 Denise Pascual, RONNIE RN Vinicio Olmos PA PA cp Rubia Ovalles, RONNIE RN tw2 Desiree Coley, RN RN ld1 Corrections: (The following items were deleted from the chart) 18:38 18:34 Reassessment: pt noted to not be in exam room and personal belongings were gone. tw2 called pt at home number on file. spoke with pt. pt states "well they told me there was nothing wrong and my pain was still there so i left". i asked pt if she pulled her IV out and pt states "i sure did". provider and charge nurse notified. aa5 18:44 18:43 Eloped from patient exam room, after seeing physician Time discovered patient tw2 gone: August 29, 2021 at 18:31 tw2
[2021-08-29 19:21] VITALS: TEMP 97.8
[2021-08-29 19:31] VITALS: BP 106/76; O2SAT 100
== END 2021-08-29 18:53 | disposition home or self-care (01) ==
LOC: ER 11:34
DX: M54.50 Low back pain, unspecified (principal); R10.31 Right lower quadrant pain; Z88.0 Allergy status to penicillin
CPT/HCPCS: 36415; 76830; 80053; 81003; 81015; 83690; 85025; 96374; 99284